=== PATIENT | male | born 1985 | race Caucasian/White ===

== ENCOUNTER 2023-07-22 12:59 | Emergency (ER) | payer BC, SELFPAY ==
[2023-07-22 13:06] VITALS: BP 153/78; BMI 26.2
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
[2023-07-22 14:44] LABS: % Basophils 0.4 % (0-2); % Eosinophils 0.4 % (0-6); % Immature Granulocytes 0.3 % (0-0.5); % Lymphocytes 17.5 % (20.5-51.1); % Monocytes 4.3 % (1.7-9.3); % Neutrophils 77.1 % (42.2-75.2); Absolute Lymphocytes 1.8 10^3/uL (1.2-3.4); Absolute Monocytes 0.4 10^3/uL (0.1-0.6); Hematocrit 44.2 % (39.0-52.0); Hemoglobin 15.1 g/dL (13.0-18.0); Mean Corp Hgb Conc. 34.2 g/dL (33.0-37.0); Mean Corpuscular Hgb 28.4 pg (27.0-31.0); Mean Corpuscular Volume 83.2 fL (80.0-94.0); Mean Platelet Volume 9.7 fL (7.4-10.4); Nucleated Red Blood Cells % 0 % (-); Platelet Count 209 10^3/uL (130-400); Red Blood Cell Count 5.31 10^6/uL (4.70-6.10); Red Cell Dist. Width 12.3 % (11.5-14.5); White Blood Cell Count 10.3 10^3/uL (4.8-10.8)
[2023-07-22 14:59] LABS: ALT (SGPT) 65 U/L (0-50); AST (SGOT) 55 U/L (17-59); Albumin 4.4 g/dl (3.5-5.0); Alkaline Phosphatase 65 U/L (38-126); Blood Urea Nitrogen 17 mg/dl (9-20); Calcium 9.7 mg/dl (8.4-10.2); Carbon Dioxide 28 mmol/L (22-30); Chloride 103 mmol/L (98-107); Estimated Creatinine Clearance > 125 ml/min; Glucose 110 mg/dl (70-99); Potassium 4.3 mmol/L (3.5-5.1); Sodium 140 mmol/L (135-145); Total Bilirubin 0.6 mg/dl (0.2-1.3); eGFR > 60.00
[2023-07-22 17:44] LABS: Alcohol None Detected
[2023-07-22] MEDS: VERSED 4 MG IM (19:40)
[2023-07-22] MEDS: HALDOL 5 MG IM (19:40)
[2023-07-23 08:23] LABS: Amphetamines Negative (Negative); Barbiturates Negative (Negative); Benzodiazepines Negative (Negative); Buprenorphine Positive (Negative); Cocaine Negative (Negative); Marijuana Positive (Negative); Methadone Negative (Negative); Methamphetamines Negative (Negative); Opiates Negative (Negative); Phencyclidine Negative (Negative); Tricyclic Antidepressants Negative (Negative)
[2023-07-23 09:10] LABS: Fentanyl, Urine Negative (Negative)
--- NOTE | 2023-07-23 11:43 | W.PN.UPDATE ---
Update Note
Progress Note Update
patient seen chart reviewed. last evening for agitation he received haldol and midazolam. he was notably more cooperative this am although not exactly a willing historian. he listened as i explained to him why he was here and what the plan is. he
would occasionally interrupt and talk about going to [facility] although i explained to him that he was not going to [facility] and what the goal or our care here is (303 tomorrow and eventual transfer to psych hospital). he is refusing psych meds. there is a
po prn and i will order im haldol for agitation . ER staff can decide if midazolam as well needed. he was content when he asked for and received a bagel oj and coffee this am from crisis.
[2023-07-23 16:43] VITALS: BP 148/85
[2023-07-24 09:30] VITALS: BP 132/87
--- NOTE | 2023-07-24 10:28 | W.PN.UPDATE ---
Update Note
Progress Note Update
patient seen chart reviewed. patient remains w pressured speech disorganized thought and christianity preoccupation. he is impulsive and reactive...affectively labile. he was committed under section 303 of the mental health act to 15 days of in
patient treatment. crisis believes a bed has been secured for him and will be organizing transport to that psychiatric facility (likely [address]) spoke [address] dr aceves to alert him that patient is unhappy with the outcome of the court hearing and
could become aggressive. there are prn medications in place. he has refused all scheduled psych meds including suboxone which he allegedly was taking. he does not appear to be in opiate withdrawal at present.
[2023-07-24 17:00] VITALS: BP 138/71
== END 2023-07-24 21:30 ==
LOC: EMR 12:59
PROVIDERS: Physician Assistant Medical; CONSULT PHYSICIAN Psychiatry & Neurology Psychiatry; EMERGENCY PHYSICIAN Emergency Medicine
DX: F31.9 Bipolar disorder, unspecified (principal); R45.850 Homicidal ideations; F19.10 Other psychoactive substance abuse, uncomplicated
CPT/HCPCS: 99285; 96372; 80053; 80306; 80307; 82077; 85025

== ENCOUNTER 2024-06-01 13:46 | Emergency (ER) | payer SELFPAY ==
[2024-06-01 13:55] VITALS: BP 130/76
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
[2024-06-01 15:55] LABS: % Basophils 0.4 % (0-2); % Eosinophils 0.7 % (0-6); % Immature Granulocytes 0.5 % (0-0.5); % Monocytes 4.5 % (1.7-9.3); % Neutrophils 78.9 % (42.2-75.2); Absolute Eosinophils 0.1 10^3/uL (0-0.7); Absolute Immature Granulocytes 0.1 10^3/uL (0-0.05); Absolute Lymphocytes 1.6 10^3/uL (1.2-3.4); Absolute Monocytes 0.5 10^3/uL (0.1-0.6); Absolute Neutrophils 8.4 10^3/uL (1.4-6.5); Hematocrit 44.7 % (39.0-52.0); Hemoglobin 15.8 g/dL (13.0-18.0); Mean Corp Hgb Conc. 35.3 g/dL (33.0-37.0); Mean Corpuscular Hgb 29.2 pg (27.0-31.0); Mean Corpuscular Volume 82.5 fL (80.0-94.0); Mean Platelet Volume 9.4 fL (7.4-10.4); Nucleated Red Blood Cells % 0 % (-); Platelet Count 175 10^3/uL (130-400); Red Blood Cell Count 5.42 10^6/uL (4.70-6.10); Red Cell Dist. Width 12.4 % (11.5-14.5); White Blood Cell Count 10.7 10^3/uL (4.8-10.8)
[2024-06-01 16:03] LABS: Chloride 104 mmol/L (98-107); Potassium 4.3 mmol/L (3.5-5.1); Sodium 138 mmol/L (135-145)
[2024-06-01 16:06] LABS: ALT (SGPT) 44 U/L (0-50); AST (SGOT) 39 U/L (17-59); Acetaminophen < 10 ug/ml (10-30); Albumin 3.7 g/dl (3.5-5.0); Alcohol None Detected; Alkaline Phosphatase 60 U/L (38-126); Amphetamines Negative (Negative); Barbiturates Negative (Negative); Benzodiazepines Negative (Negative); Blood Urea Nitrogen 6 mg/dl (9-20); Buprenorphine Negative (Negative); Calcium 8.7 mg/dl (8.4-10.2); Carbon Dioxide 28 mmol/L (22-30); Glucose 108 mg/dl (70-99); Methadone Negative (Negative); Methamphetamines Negative (Negative); Opiates Negative (Negative); Salicylate < 1.0 mg/dl (2.0-20.0); Total Bilirubin 0.4 mg/dl (0.2-1.3); Total Protein 6.4 g/dl (6.3-8.2); eGFR > 60.00
[2024-06-01 16:07] LABS: Cocaine Positive (Negative); Marijuana Positive (Negative); Phencyclidine Positive (Negative); Tricyclic Antidepressants Negative (Negative)
[2024-06-01 16:23] LABS: Fentanyl, Urine Positive (Negative)
[2024-06-02 08:21] VITALS: BP 129/71
== END 2024-06-02 12:05 ==
LOC: EMR 13:46
PROVIDERS: CONSULT PHYSICIAN Psychiatry & Neurology Psychiatry; EMERGENCY PHYSICIAN Emergency Medicine
DX: F31.9 Bipolar disorder, unspecified (principal); F12.10 Cannabis abuse, uncomplicated; F14.10 Cocaine abuse, uncomplicated; F17.200 Nicotine dependence, unspecified, uncomplicated
CPT/HCPCS: 99285; 80053; 80143; 80179; 80306; 80307; 82077; 85025

== ENCOUNTER 2024-07-03 22:27 | Emergency (ER) | payer MEDICAID, SELFPAY ==
[2024-07-03 22:28] VITALS: BP 165/100
--- NOTE | 2024-07-03 22:55 | ED.GENMED ---
History of Present Illness
General
Chief Complaint: Crisis Evaluation
Time Seen by Provider: 07/03/24 22:36
History of Present Illness
History of Present Illness:
Patient presents to the emergency department for crisis evaluation on 302 by his friend Obie. Patient has a history of substance abuse and bipolar disorder. His friend notes that he has been doing fentanyl and crack cocaine. Patient has a history
of aggression. Patient has flight of ideas with tangential thought content and is unable to provide a clear history
Past History
Past History
ED Past Medical History: Psychiatric (Bipolar); Negative Asthma, HTN, Hypercholesterolemia or NIDDM
ED Past Surgical History: None
Social History
Tobacco: Smoker
Alcohol: Occasional
Drug: None
Personal: Single
Living: with family
Employment: Not employed
Phy Exam
Physical Exam
Physical Exam:
General: Standing up walking around the room, disheveled
Head: NCAT
Neck, Normal in appearance, no swelling
Respiratory: No Respiratory distress
Abdomen: No distension
Ext: no edema
Neuro: HILARIO, AOx4
Psych: Somewhat agitated affect, tangential speech, bizarre content
Skin: Normal color
Course
Orders/Labs/Results
Orders:
Orders
07/03/24 22:51
Urine Drug Abuse Screen Urgent
07/03/24 23:00
Alcohol Urgent
Complete Blood Count/With Diff Urgent
Comprehensive Metabolic Panel Urgent
07/03/24 23:04
Crisis Consult Urgent
Reason for Consult: erratic behavior, bizzare behavior. hx of bipolar and substance abuse.
Abnormal Lab Results
07/03/24
23:00
Absolute Monos (auto) 0.9 H 10^3/uL
(0.1-0.6)
Glucose 112 H mg/dl
(70-99)
AST 68 H U/L
(17-59)
ALT 97 H U/L
(0-50)
07/03/24 23:00
07/03/24 23:00
Vital Signs
Initial and Last Documented VS:
Initial Vital Signs
Temp Pulse Resp BP Pulse Ox
98.1 F 84 18 165/100 97
07/03/24 22:28 07/03/24 22:28 07/03/24 22:28 07/03/24 22:28 07/03/24 22:28
Last Documented Vital Signs
Temp Pulse Resp BP Pulse Ox
98.1 F 84 18 165/100 97
07/03/24 22:28 07/03/24 22:28 07/03/24 22:28 07/03/24 22:28 07/03/24 22:28
*Critical Care Note
Total Time (30-74mins, 75-104mins- exclusive of procedures): Not Applicable
ED Attending Note
-
Portions of this chart may have been created with voice recognition software.� Occasional wrong word or��sound alike� substitutions may have occurred due to the inherent limitations of voice recognition software.
Discharge Plan
Departure
Patient Disposition: Psych Facility
Date of Disposition: 07/04/24
Time of Disposition: 00:51
Discharge Problem:
Psychosis
Prescriptions:
No Action
Unobtainable
0
Referrals:
UNKNOWN - PT NOT,INTERVIEWE [Family Provider] -
Interventions
Interventions:
*Risk Screen - Suicide Last Done: 07/03/24 22:29
*General Assessment Last Done: 07/03/24 22:29
*Neglect/Abuse Screening Last Done: 07/03/24 22:29
*ED- Fall Risk Assessment Last Done: 07/03/24 23:31
*ED COVID-19 Vaccine History Last Done: 07/03/24 22:29
ED-Psychological Assessment Last Done: 07/03/24 23:30
Discharge Date and Time
Print Language: SERBIAN
[2024-07-03 23:06] LABS: % Basophils 0.5 % (0-2); % Eosinophils 0.9 % (0-6); % Immature Granulocytes 0.2 % (0-0.5); % Lymphocytes 22.9 % (20.5-51.1); % Monocytes 8.8 % (1.7-9.3); % Neutrophils 66.7 % (42.2-75.2); Absolute Basophils 0.1 10^3/uL (0-0.2); Absolute Eosinophils 0.1 10^3/uL (0-0.7); Absolute Lymphocytes 2.2 10^3/uL (1.2-3.4); Absolute Monocytes 0.9 10^3/uL (0.1-0.6); Absolute Neutrophils 6.5 10^3/uL (1.4-6.5); Hematocrit 44.5 % (39.0-52.0); Hemoglobin 15.7 g/dL (13.0-18.0); Mean Corp Hgb Conc. 35.3 g/dL (33.0-37.0); Mean Corpuscular Hgb 28.9 pg (27.0-31.0); Mean Platelet Volume 9.9 fL (7.4-10.4); Nucleated Red Blood Cells % 0 % (-); Platelet Count 150 10^3/uL (130-400); Red Blood Cell Count 5.43 10^6/uL (4.70-6.10); Red Cell Dist. Width 12.5 % (11.5-14.5); White Blood Cell Count 9.7 10^3/uL (4.8-10.8)
[2024-07-03 23:20] LABS: ALT (SGPT) 97 U/L (0-50); AST (SGOT) 68 U/L (17-59); Albumin 3.9 g/dl (3.5-5.0); Alkaline Phosphatase 52 U/L (38-126); Blood Urea Nitrogen 10 mg/dl (9-20); Calcium 9.1 mg/dl (8.4-10.2); Carbon Dioxide 30 mmol/L (22-30); Chloride 105 mmol/L (98-107); Glucose 112 mg/dl (70-99); Potassium 4.3 mmol/L (3.5-5.1); Sodium 141 mmol/L (135-145); Total Bilirubin 1.2 mg/dl (0.2-1.3); Total Protein 6.9 g/dl (6.3-8.2); eGFR > 60.00
[2024-07-03 23:21] LABS: Alcohol None Detected
[2024-07-04 02:07] LABS: Amphetamines Negative (Negative); Barbiturates Negative (Negative); Benzodiazepines Negative (Negative); Buprenorphine Negative (Negative); Cocaine Positive (Negative); Marijuana Negative (Negative); Methadone Negative (Negative); Methamphetamines Negative (Negative); Opiates Negative (Negative); Phencyclidine Negative (Negative); Tricyclic Antidepressants Negative (Negative)
[2024-07-04 02:23] LABS: Fentanyl, Urine Positive (Negative)
[2024-07-04 07:34] VITALS: BP 113/73
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
== END 2024-07-04 19:57 ==
LOC: EMR 22:27
PROVIDERS: EMERGENCY PHYSICIAN Emergency Medicine
DX: F29 Unspecified psychosis not due to a substance or known physiological condition (principal); F19.10 Other psychoactive substance abuse, uncomplicated; F31.9 Bipolar disorder, unspecified; F17.200 Nicotine dependence, unspecified, uncomplicated
CPT/HCPCS: 99283; 80053; 80306; 80307; 82077; 85025